=== PATIENT | female | born 1985 | race Caucasian/White ===

== ENCOUNTER 2024-06-23 15:49 | Emergency (ER) | payer BC ==
[2024-06-23] MEDS ORDERED: NA CHLORIDE 0.9% 1,000 ML ONE (16:38)
[2024-06-23 16:41] LABS: Absolute Basophils 0.1 K/uL (0-0.5); Absolute Eosinophils 0.2 K/uL (0-0.5); Absolute Lymphocytes (CBC) 3.7 K/uL (0.7-4.9); Absolute Monocytes 0.7 K/uL (0.1-1.3); Absolute Neutrophil 8.1 K/uL (1.8-8.0); Basophils % 0.9 % (0-1.3); Eosinophils % 1.9 % (0-4.4); Hematocrit 47.7 % (36.0-45.0); Hemoglobin 15.7 g/dL (12.0-15.0); MCH 33.8 pg (27.0-35.0); MCV 102.5 fL (80-100); MPV 7.8 fL (7.6-11.3); Monocytes % 5.1 % (3.3-12.3); Neutrophils % 63.1 % (41.7-73.7); Platelets 370 thou/uL (152-406); RBC Red Blood Cell Count 4.66 M/uL (3.86-4.86); Red Cell Distribution Width 14.7 % (12.1-15.2)
[2024-06-23 16:55] LABS: Anion Gap 7.6 mEq/L (5.0-15.0); Potassium 3.6 mEq/L (3.5-5.1)
[2024-06-23 17:02] LABS: Specific Gravity 1.028 (1.005-1.030)
[2024-06-23 17:04] LABS: Urine Bacteria None Seen /HPF (<20); Urine Culture Reflex Order REFLEXED; Urine Micro Reflex YN NO BILL MICROSCOPIC; Urine RBC >50 /HPF (None Seen); Urine WBC >50 /HPF (<5); Urine WBC Clump Many /HPF (None Seen); Urine Yeast (Budding) Moderate /HPF (None Seen)
--- NOTE | 2024-06-23 17:55 | RAD REPORT ---
EXAMINATION: Pelvis Complete CLINICAL INDICATION: Vaginal bleeding TECHNIQUE: Real-time ultrasonography of the pelvis was performed transabdominally.. Color and spectra l Doppler evaluation of the ovaries was performed. COMPARISON: No prior exam. Findings: Hysterectomy. The right and left ovaries are equivocally visualized. No abnormality noted. Right and left adnexa unremarkable. IMPRESSION: Hysterectomy. Unremarkable exam
[2024-06-23] MEDS ORDERED: CEFTRIAXONE 1000 MG/VIAL ONE (18:36)
[2024-06-23] MEDS ORDERED: levoFLOXacin 250 MG TAB ONE (18:37)
--- NOTE | 2024-06-23 19:08 | EDPHYS ---
Physician Documentation [facility] Name: Perla Champion Age: 39 yrs Sex: Female : 1985 Arrival Date: 06/23/2024 Time: 15:49 Bed 18 Private MD: CAM[place] Physician Nigel Cole HPI: 06/23 18:44 This 39 yrs old Unknown Female presents to ER via Wheelchair with complaints of Vaginal dinora Bleeding. 18:44 The patient presents with vaginal bleeding that is moderate. Onset: The dinora symptoms/episode began/occurred today. Modifying factors: The symptoms are alleviated by nothing, the symptoms are aggravated by nothing. Associated signs and symptoms: The patient has no apparent associated signs or symptoms. Severity of symptoms: At their worst the symptoms were moderate, in the emergency department the symptoms are unchanged. The patient is not sexually active. The patient has not experienced similar symptoms in the past, HAD ROBOTIC HYSTERECTOMY 2 WEEKS AGO. 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 - Infectious Disease History:: Denies. - Social history:: Smoking status: Patient reports the use of cigarette tobacco products, smokes one-half pack cigarettes per day. - Family history:: not pertinent. ROS: 18:44 Constitutional: Negative for fever, chills, and weight loss, Eyes: Negative for injury, dinora pain, redness, and discharge, ENT: Negative for injury, pain, and discharge, Neck: Negative for injury, pain, and swelling, Cardiovascular: Negative for chest pain, palpitations, and edema, Respiratory: Negative for shortness of breath, cough, wheezing, and pleuritic chest pain, Back: Negative for injury and pain, MS/Extremity: Negative for injury and deformity, Skin: Negative for injury, rash, and discoloration, Neuro: Negative for headache, weakness, numbness, tingling, and seizure, Psych: Negative for depression, anxiety, suicide ideation, homicidal ideation, and hallucinations, Allergy/Immunology: Negative for hives, rash, and allergies, Endocrine: Negative for neck swelling, polydipsia, polyuria, polyphagia, and marked weight changes, Hematologic/Lymphatic: Negative for swollen nodes, abnormal bleeding, and unusual bruising, 18:44 Abdomen/GI: Positive for abdominal pain, abdominal cramps, abdominal distension, VAGINAL BLEEDEING, Exam: 18:44 Constitutional: This is a well developed, well nourished patient who is awake, alert, dinora and in no acute distress. Head/Face: Normocephalic, atraumatic. Eyes: Pupils equal round and reactive to light, extra-ocular motions intact. Lids and lashes normal. Conjunctiva and sclera are non-icteric and not injected. Cornea within normal limits. Periorbital areas with no swelling, redness, or edema. ENT: Nares patent. No nasal discharge, no septal abnormalities noted. Tympanic membranes are normal and external auditory canals are clear. Oropharynx with no redness, swelling, or masses, exudates, or evidence of obstruction, uvula midline. Mucous membranes moist. Neck: Trachea midline, no thyromegaly or masses palpated, and no cervical lymphadenopathy. Supple, full range of motion without nuchal rigidity, or vertebral point tenderness. No Meningismus. Chest/axilla: Normal chest wall appearance and motion. Nontender with no deformity. No lesions are appreciated. Cardiovascular: Regular rate and rhythm with a normal S1 and S2. No gallops, murmurs, or rubs. Normal PMI, no JVD. No pulse deficits. Respiratory: Lungs have equal breath sounds bilaterally, clear to auscultation and percussion. No rales, rhonchi or wheezes noted. No increased work of breathing, no retractions or nasal flaring. Back: No spinal tenderness. No costovertebral tenderness. Full range of motion. Skin: Warm, dry with normal turgor. Normal color with no rashes, no lesions, and no evidence of cellulitis. MS/ Extremity: Pulses equal, no cyanosis. Neurovascular intact. Full, normal range of motion., bilateral aka Neuro: Awake and alert, GCS 15, oriented to person, place, time, and situation. Cranial nerves II-XII grossly intact. Motor strength 5/5 in all extremities. Sensory grossly intact. Cerebellar exam normal. Normal gait. Psych: Awake, alert, with orientation to person, place and time. Behavior, mood, and affect are within normal limits. 18:44 Abdomen/GI: Inspection: distension, that is moderate, Bowel sounds: normal, Palpation: moderate abdominal tenderness, in the right lower quadrant and left lower quadrant, Liver: no appreciated palpable abnormalities, Hernia: not appreciated, Vital Signs: 16:14 BP 123 / 68; Pulse 66; Resp 16; Temp 97.8; Pulse Ox 100% on R/A; Weight 113.4 kg; hb Height 5 ft. 8 in. ; Pain 6/10; 17:00 BP 126 / 60; Pulse 64; Resp 16; Pulse Ox 97% ; me1 18:00 BP 136 / 68; Pulse 59; Resp 15; Pulse Ox 97% ; me1 19:00 BP 140 / 76; Pulse 53; Resp 16; Temp 98.4; Pulse Ox 97% ; me1 16:14 Body Mass Index 38.01 (113.40 kg, 172.72 cm) hb 16:14 Pain Scale: Adult hb MDM: 16:16 Medical Screening Exam initiated dinora 18:47 Differential diagnosis: nonspecific abdominal pain, urinary tract infection. Data [facility] reviewed: vital signs, nurses notes, lab test result(s), radiologic studies, CT scan, ultrasound. Consideration of Admission/Observation Escalation of care including admission/observation considered. I considered the following discharge prescriptions or medication management in the emergency department Medications were administered in the Emergency Department. See MAR. Independent interpretation of the following test(s) in the Emergency Department CT Scan: My interpretation is CT ABDOMINAL PAIN. Test considered but Not performed: MRI: NO PELVIS MRI. Historians other than the Patient: Spouse/Significant Other: WELL INFORMED. Care significantly affected by the following chronic conditions: Obesity. Counseling: I had a detailed discussion with the patient and/or guardian regarding the historical points, exam findings, and any diagnostic results supporting the discharge/admit diagnosis, lab results, radiology results, the need to transfer to another facility, for higher level of care, [facility] does not immediately have the required specialist. 19:08 ED course: FOLLOW UP STRATEGIC ALLIANCES MANAGER IN THE AM , TAKE ABX, RETURN IF BLEEDING WORSENS, PT dinora REFUSED A SPEC EXAM. 06/23 16:16 Order name: Abo/rh Typing; Complete Time: 18:20 [facility] 06/23 16:16 Order name: Basic Metabolic Panel; Complete Time: 18:20 [facility] 06/23 16:16 Order name: CBC with Diff; Complete Time: 18:20 [facility] 06/23 16:16 Order name: Test, Urine; Complete Time: 18:20 [facility] 06/23 16:57 Order name: Urine Microscopic Only; Complete Time: 18:20 [facility] 06/23 17:07 Order name: Urine Culture [facility] 06/23 17:21 Order name: Pelvis Complete; Complete Time: 18:20 [facility] 06/23 16:16 Order name: IV Saline Lock; Complete Time: 16:41 [facility] 06/23 16:16 Order name: Labs collected and sent; Complete Time: 16:41 [facility] 06/23 16:16 Order name: NPO; Complete Time: 16:41 [facility] Administered Medications: 16:50 Drug: NS 0.9% IV 1000 ml IV at 1000 ml once; to be given as a bolus over 60 minutes me1 Route: IV; Rate: 1000 ml; Site: right antecubital; 18:42 Follow up: Response: No adverse reaction; IV Status: Completed infusion; IV Intake: me1 1000ml 18:42 Drug: Rocephin IV 1 grams IV at per protocol once; Given slow IV push per pharmacy me1 instructions Route: IV; Rate: per protocol; Site: right antecubital; 19:08 Follow up: Response: No adverse reaction; IV Status: Completed infusion me1 18:42 Drug: LevOfloxacin PO 500 mg PO once Route: PO; me1 19:08 Follow up: Response: No adverse reaction me1 19:36 Drug: Trimethoprim-Sulfamethoxazole PO (160 mg-800 mg (DS) 1 tablet PO once Route: PO; me1 19:36 Follow up: Response: No adverse reaction me1 Disposition Summary: 06/23/24 19:07 Discharge Ordered Notes: Location: Home dinora Problem: new dinora Symptoms: have improved dinora Condition: Stable dinora Diagnosis - Acute cystitis with hematuria dinora - UTI/ Urinary tract infection, site not specified dinora Followup: dinora - With: Private Physician - When: Tomorrow - Reason: Recheck today's complaints, Continuance of care, Re-evaluation by your physician Discharge Instructions: - Discharge Summary Sheet dinora - Dysuria dinora - Urinary Tract Infection, Adult dinora - Urinary Tract Infection, Adult, [id number] dinora Forms: - Medication Reconciliation Form dinora - Antibiotic Education dinora - Prescription Opioid Use dinora - Patient Portal Instructions [facility] - Leadership Thank You Letter [facility] Prescriptions: - Bactrim DS 800-160 mg Oral tablet - take 1 tablet ORAL route every 12 hours for 5 days; 10 tablet; Refills: 0, [facility] Product Selection Permitted - levofloxacin 500 mg Oral tablet - take 1 tablet ORAL route once daily for 7 days; 7 tablet; Refills: 0, Product [facility] Selection Permitted Signatures: Dispatcher [employer] Nigel Arrieta MD MD cha Baxter, Heather, ALBINA MONTEMAYOR Jenifer Vance RN RN me1 Corrections: (The following items were deleted from the chart) 16:17 16:17 ABO/RH TYPING+BB.LAB.BRZ ordered. EDMS EDMS 16:17 16:17 BASIC METABOLIC PANEL+C.LAB.BRZ ordered. EDMS EDMS 16:17 16:17 CBC+H.LAB.BRZ ordered. EDMS EDMS 16:17 16:17 Test, Urine+UC.LAB.BRZ ordered. EDMS EDMS 16:17 16:17 Transvaginal Ob+US.RAD.BRZ ordered. EDMS EDMS 16:57 16:17 Urinalysis+U.LAB.BRZ ordered. EDMS EDMS 17:21 16:28 Transvaginal Study Probe ordered. EDAK EDMS 19:08 18:44 Misc. Order ordered. [place] [id number] 19:33 18:44 Abdomen Pelvis W Con+CT.RAD.BRZ ordered. EDMS EDMS
--- NOTE | 2024-06-23 19:08 | ER ---
Nurse's Notes [facility] Name: Perla Champion Age: 39 yrs Sex: Female : 1985 Arrival Date: 06/23/2024 Time: 15:49 Bed 18 Private MD: Diagnosis: Acute cystitis with hematuria;UTI/ Urinary tract infection, site not specified Presentation: 06/23 16:14 Chief complaint: Heavy vaginal bleeding x 1 hr. Had robotic partial hysterectomy [address] Toth at [facility]. Coronavirus screen: At this time, the client does not indicate any symptoms associated with coronavirus-19. Ebola Screen: No symptoms or risks identified at this time. Initial Sepsis Screen: Does the patient meet any 2 criteria? No. Patient's initial sepsis screen is negative. Does the patient have a suspected source of infection? No. Patient's initial sepsis screen is negative. Risk Assessment: Do you want to hurt yourself or someone else? Patient reports no desire to harm self or others. Onset of symptoms was June 23, 2024 at 16:15. 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 - Infectious Disease History:: Denies. - Social history:: Smoking status: Patient reports the use of cigarette tobacco products, smokes one-half pack cigarettes per day. - Family history:: not pertinent. Screenin:30 [facility] ED Fall Risk Assessment (Adult) History of falling in the last 3 months, me1 including since admission No falls in past 3 months (0 pts) Confusion or Disorientation No (0 pts) Intoxicated or Sedated No (0 pts) Impaired Gait No (0 pts) Mobility Assist Device Used No (0 pt) Altered Elimination No (0 pt) Score/Fall Risk Level 0 - 2 = Low Risk Maintained a safe environment, Provided non-skid footwear, Hourly rounding (assess needs \T\ fall precautionary measures) done. Abuse screen: Denies threats or abuse. Nutritional screening: No deficits noted. Tuberculosis screening: No symptoms or risk factors identified. Assessment: 16:30 General: Appears comfortable, obese, well groomed, well developed, Behavior is calm, me1 cooperative, appropriate for age, Reports Heavy vaginal bleeding x 1 hr. Had robotic partial hysterectomy [address] Toth at [facility]. Pain: Denies pain. Neuro: Level of Consciousness is awake, alert, obeys commands, Oriented to person, place, time, situation, Appropriate for age. Cardiovascular: Patient's skin is warm and dry. Respiratory: Airway is patent Respiratory effort is even, unlabored, Respiratory pattern is regular, symmetrical. GI: No signs and/or symptoms were reported involving the gastrointestinal system. : Reports vaginal bleeding that is heavy flow. EENT: No signs and/or symptoms were reported regarding the EENT system. Derm: Skin is intact, is healthy with good turgor, Skin is pink, warm \T\ dry. Musculoskeletal: No signs and/or symptoms reported regarding the musculoskeletal system. Vital Signs: 16:14 BP 123 / 68; Pulse 66; Resp 16; Temp 97.8; Pulse Ox 100% on R/A; Weight 113.4 kg; hb Height 5 ft. 8 in. ; Pain 6/10; 17:00 BP 126 / 60; Pulse 64; Resp 16; Pulse Ox 97% ; me1 18:00 BP 136 / 68; Pulse 59; Resp 15; Pulse Ox 97% ; me1 19:00 BP 140 / 76; Pulse 53; Resp 16; Temp 98.4; Pulse Ox 97% ; me1 16:14 Body Mass Index 38.01 (113.40 kg, 172.72 cm) hb 16:14 Pain Scale: Adult hb ED Course: 15:52 Patient arrived in ED. al6 16:15 Triage completed. hb 16:16 Nigel Cole MD is Attending Physician. [facility] 16:16 Arm band placed on. hb 16:30 Patient has correct armband on for positive identification. Bed in low position. Call me1 light in reach. Side rails up X2. Provided Education on: POC. Verbalized understanding.. Client placed on continuous cardiac and pulse oximetry monitoring. NIBP monitoring applied. Pulse ox on. NIBP on. 16:30 No provider procedures requiring assistance completed. Inserted saline lock: 22 gauge me1 in right antecubital area, using aseptic technique. 16:41 Jenifer Vance, RN is Primary Nurse. me1 16:41 Abo/rh Typing Sent. me1 16:41 Basic Metabolic Panel Sent. me1 16:41 CBC with Diff Sent. me1 16:41 Test, Urine Sent. me1 17:21 Pelvis Complete In Process Unspecified. EDMS 19:40 IV discontinued, intact, bleeding controlled, No redness/swelling at site. Pressure me1 dressing applied. Administered Medications: 16:50 Drug: NS 0.9% IV 1000 ml IV at 1000 ml once; to be given as a bolus over 60 minutes me1 Route: IV; Rate: 1000 ml; Site: right antecubital; 18:42 Follow up: Response: No adverse reaction; IV Status: Completed infusion; IV Intake: me1 1000ml 18:42 Drug: Rocephin IV 1 grams IV at per protocol once; Given slow IV push per pharmacy me1 instructions Route: IV; Rate: per protocol; Site: right antecubital; 19:08 Follow up: Response: No adverse reaction; IV Status: Completed infusion me1 18:42 Drug: LevOfloxacin PO 500 mg PO once Route: PO; me1 19:08 Follow up: Response: No adverse reaction me1 19:36 Drug: Trimethoprim-Sulfamethoxazole PO (160 mg-800 mg (DS) 1 tablet PO once Route: PO; me1 19:36 Follow up: Response: No adverse reaction me1 Medication: 16:30 VIS not applicable for this client. me1 Intake: 18:42 IV: 1000ml; Total: 1000ml. me1 Outcome: 19:07 Discharge ordered by MD. farias 19:40 Discharged to home ambulatory, with significant other, me1 19:40 Condition: stable 19:40 Discharge instructions given to patient, significant other, Instructed on discharge instructions, follow up and referral plans. medication usage, Demonstrated understanding of instructions, follow-up care, medications, Prescriptions given X 2, 19:41 Patient left the ED. me1 Addendum: 06/27/2024 07:09 Addendum: Culture Results: Positive urine culture. No further action required. Bacteria e b sensitive to prescribed antibiotic. Signatures: Dispatcher [employer] EDPA Nigel Cole MD MD cha Baxter, Heather, RN RN Karyn Pineda Michelle RN RN fl1 Winsome [email or web address] Corrections: (The following items were deleted from the chart) 06/23 16:57 16:41 Urinalysis+U.LAB.BRZ drawn and sent. [facility] EDPA 17:18 16:14 Chief complaint: Heavy vaginal bleeding x 1 hr. Had robotic partial hysterectomy [facility] [address] Toth at [facility]. hb
[2024-06-23] MEDS ORDERED: SMZ./TMP. 800/160 MG TABLET ONE (19:28)
[2024-06-23 20:20] VITALS: O2SAT 97
[2024-06-23 20:23] VITALS: BP 140/76; TEMP 98.4
== END 2024-06-23 19:41 | disposition home or self-care (01) ==
LOC: ER 15:49
DX: N30.01 Acute cystitis with hematuria (principal); Z98.890 Other specified postprocedural states; F17.210 Nicotine dependence, cigarettes, uncomplicated
CPT/HCPCS: 96365; 96361; 87088; 85025; 87086; 80048; 36415; 86900; 81025; 86901; 87077 ×2; 87186 ×2; 81015; 76856; 99284; J7030; J0696